=== PATIENT | male | born 1980 | race Caucasian/White ===

== ENCOUNTER 2024-10-16 11:16 | Outpatient (CLI) | payer BC, SELFPAY ==
[2024-10-16 11:51] LABS: Hematocrit 44.4 % (42.0-52.0); Hemoglobin 14.1 g/dL (14.1-18.0); Immature Granulocytes % 2.1 %; Mean Corpuscular HGB Conc 31.8 g/dL (31.8-35.4); Mean Corpuscular Hemoglobin 28.6 pg (27.0-31.2); Mean Corpuscular Volume 90.1 fl (80-94); Nucleated Red Blood Cells % 0 %; Platelet Count 393 K/mm3 (142-424); Red Blood Count 4.93 M/mm3 (4.60-6.20); Red Cell Distribution Width-SD 44.2 fL; White Blood Count 8.0 K/mm3 (4.8-10.8)
[2024-10-16 12:12] LABS: Alanine Aminotransferase 29 U/L (12-78); Albumin Level 4.4 g/dl (3.5-5.0); Alkaline Phosphatase 49 U/L (38-126); Anion Gap 10.7 mEq/L (5-15); Aspartate Amino Transferase 25 U/L (17-59); Bilirubin,Direct 0.5 mg/dl (0.0-0.4); Bilirubin,Indirect 0.2 mg/dL (0.0-0.9); Bilirubin,Total 0.7 mg/dl (0.2-1.3); Bilirubin,Unconjugated 0.3 mg/dL (0.0-1.1); Blood Urea Nitrogen 12 mg/dl (9-20); Calcium 9.9 mg/dl (8.4-10.2); Carbon Dioxide 30 mmol/L (22.0-30.0); Chloride 102 mmol/L (98-107); Cholesterol 199 mg/dl (140-200); Creatinine,Serum 0.90 mg/dl (0.66-1.25); Estimated Glomerular Filt Rate 92 ml/min (>60); GFR (African American) 111 ML/MIN (>60); Glucose 106 mg/dl (74-100); HDL Cholesterol 42 mg/dl (40-60); Magnesium 1.9 mg/dl (1.6-2.3); Potassium 4.7 mmoL/L (3.5-5.1); Sodium 138 mmol/L (136-145); Total Protein,Serum 6.8 g/dl (6.3-8.2); Triglycerides 142 mg/dl (30-150)
[2024-10-16 12:32] LABS: Free T4 (Free Thyroxine) 1.41 ng/dl (0.78-2.19)
[2024-10-16 12:40] LABS: Troponin I < 0.01 ng/ml (0.00-0.034)
[2024-10-16 12:45] LABS: Thyroid Stimulating Hormone 0.85 uIU/mL (0.465-4.68)
== END 2024-10-16 23:59 | disposition home or self-care (01) ==
LOC: LAB 11:18
PROVIDERS: Visit Provider Nurse Practitioner
DX: R61 Generalized hyperhidrosis (principal); R94.31 Abnormal electrocardiogram [ECG] [EKG]; R07.89 Other chest pain
CPT/HCPCS: 36415; 80048; 80061; 80076; 83735; 84439; 84443; 84484; 85025

== ENCOUNTER 2024-10-17 06:52 | Outpatient (CLI) | payer BC, SELFPAY ==
--- OUTSIDE RECORDS SUMMARY | 2024-08-07 04:15 | XMS_ITS ---
Author Organization [facility] [place] Address [address] [place] [address] [place] [address] Care Team Providers Care Medical Reimbursement Manager Name Role Phone MAYRA ROSENBERG Unavailable [phone] REASON FOR VISIT KIDNEY STONE ISSUES Encounters Encounter Location Date Provider Diagnosis [facility] [place] [address] [place], [place] [phone] 08/07/2024 MAYRA ROSENBERG Plan Of Treatment Next Appt Details Provider Name:MAYRA BENDER, 03/16/2025 11:00:00 AM, [address] [facility], [facility], [place], [place], [id number], Provider Name:Sanjay Brooks, 0 09/14/2025 08:45:00 AM, [address], [place], [place], [id number], Progress Notes * JAY JAY ORANTES KDOB:1980 (44 yo M)Acc No.[id number]:08/07/2024 Progress Notes Patient: Bi BEYER JAY JAY Irving Provider: Chris ROSENBERG M.D., F.A.C.P. :1980 A ge:43 Y S ex:Male Date:08/07/2024 Address:[address] , [facility] Subjective: * Chief Complaints: * 1 . KIDNEY STONE ISSUES. * Medical History: Objective: * Vitals: Assessment: Plan: * Treatment: * * Electronic signature of YUE ROSENBERG MD on 10/17/2024 at 06:56 AM EDT Sign off status: Pending * Provider: Chris ROSENBERG M.D., F.A.C.P. Date: 0 08/07/2024 Generated for Brady farooq/Alvin/Stuartitting on: 0 10/17/2024 06:56 AM EDT
--- OUTSIDE RECORDS SUMMARY | 2024-09-13 05:00 | XMS_ITS ---
Author Organization [facility] [place] Address [address] [place] [address] [place] [address] Care Team Providers Care Studio Owner Name Role Phone MAYRA ROSENBERG Unavailable [phone] MonoSanjay wayne Unavailable [phone] Allergies No Known Allergies REASON FOR VISIT annual/NEEDS A1C/DM EYE EXAM/MCUC/CMP Medications Medication SIG (Take, Route, Frequency, Duration) Notes Start Date End Date Status Pantoprazole Sodium 40 MG TAKE 1 TABLET BY MOUTH EVERY DAY for 90 days Active Testosterone UROLOGY Active Tamsulosin HCl 0.4 MG 1 capsule Orally O nce a day for 30 days 08/01/2024 Active Simvastatin 10 MG 1 tablet in the even ing for 90 days Active Fenofibrate 145 MG TAKE 1 TABLET BY SWETHA TH EVERY DAY for 90 days Active Lisinopril 20 MG TAKE 1 TABLET BY SWETHA TH DAILY for 90 days Active Social History Tobacco Use: Social History Observation Description Date Details (start date - stop date) Never Smoker NA - NA Tobacco use other than smoking: Question Answer Notes Are you an other tobacco user? No Tobacco Control (Standard) Question Answer Notes Tobacco use: Nonsmoker AUDIT-C (Standard) Question Answer Notes Did you have a drink containing alcohol in the p ast year? No Points 0 Interpretation Negative Problems Problem Type SNOMED Code ICD Code Onset Dates Problem Status W/U Status Risk Notes Problem Body mass index 30+ - obesity (770461514) Body mass index (BMI) of 31.0-31.9 in adult (Z68.31) Active confirmed Problem Body mass index 35.00 to 39.99 (8475942876840 05) Body mass index [BMI] 39.0-39.9, adult (Z68.39) Active confirmed Vital Signs Temperature 99.1 degrees Fahrenheit 09/14/19 25 Blood pressure systolic 116 mm Hg 09/14/19 25 Blood pressure diastolic 68 mm Hg 025 Heart Rate 69 /min 09/13/2024 Respiratory Rate 16 /min 09/13/2024 Height 67 in 09/13/2024 Weight 254.0 lbs 09/13/2024 BMI 39.78 kg/m2 09/13/2024 Oximetry 95 % 09/13/2024 Encounters Encounter Location Date Provider Diagnosis [facility] [place] [address] [place], [place] [id number] 09/13/2024 Sanjay Brooks Encounter for genera l adult medical examination without abnormal findings Z00.00 and Body mass index [BMI] 39.0-39.9, adult Z68.39 Assessments Encounter Date Diagnosis (ICD Code) Assessment Notes Treatment Notes Treatment Clinical Notes Section Notes 09/13/2024 Encounter for general adult medical examination without abnormal findings (ICD-10 - Z00.00) BP good. BMI 39, discussed weight loss and lifestyle modifications. PHQ-9 negative. Colonoscopy UTD. Bloodwork UTD, 06/2024. Medication reviewed. 1 ER visit for kidney stones, follows with Urology. Vaccinations UTD. 09/13/2024 Body mass index [BMI] 39.0-39.9, adult (ICD-10 - Z68.39) Plan Of Treatment Treatment Notes Assessment Notes Encounter for general adult medical examination without abnormal findings BP good. BMI 39, discussed weight loss a nd lifestyle modifications. PHQ-9 negative. Colonoscopy UTD. Bloodwork UTD, 06/2024. Medication reviewed. 1 ER visit for kidney stones, follows with Urology. Vaccinations UTD. Next Appt Details Provider Name:MAYRA BENDER, 03/16/2025 11:00:00 AM, [address], [address], [place], [place], [id number], Provider Name:Sanjay Brooks, 0 09/14/2025 08:45:00 AM, [address], [address], [place], [place], [id number], Progress Notes * JAY JAY ORANTES KDOB:1980 (44 yo M)Acc No.[id number]:09/13/2024 Progress Notes Patient: JAY JAY CLAY Provider: Eddy Brooks :1980 A ge:44 Y S ex:Male Date:09/13/2024 Address:[address] [place], [place] [address] [address] Subjective: * Chief Complaints: * a nnual/NEEDS A1C/DM EYE EXAM/MCUC/CMP * HPI: D epression Screening: PHQ-9 L ittle interest or pleasure in doing things?Not at all F eeling down, depressed, or hopeless N ot at all T rouble falling or staying asleep, or sleeping too much N ot at all F eeling tired or having little energy N ot at all P oor appetite or overeating N ot at all F eeling bad about yourself or that you are a failure, or have let yourself or your family down N ot at all T rouble concentrating on things, such as reading the newspaper or watching television N ot at all M oving or speaking so slowly that other people could have noticed; or the opposite, being so fidgety or restless that you have been moving around a lot more than usual N ot at all T houghts that you would be better off or of hurting yourself in some way N ot at all T otal Score 0 C onstitutional: 44 y/o M with PMH HTN, HLD presents to the office to the annual wellness. Follows with Urology quarterly for testosterone. Pt is denying any acute complaints, doing well overall. Denies fever, chills, CP, SOA, n/v/d. PHQ-9 scored 2, negative. Denies smoking, illicit drugs. Seldom ETOH use. , 2 children. Works in electrical sales. UTD on colonoscopy this year, 10 year return. No family hx of prostate cancer. Eye exam UTD. R eviewed medication list. Tdap UTD this year. * ROS: G eneral/Constitutional: Change in appetite d enies. C hills d enies. F ever d enies. O phthalmologic: Blurred vision d enies. D ischarge d enies. E ye Pain d enies. E NT: Decreased hearing d enies. S ore throat d enies.?Swollen glands d enies. E ndocrine: Cold intolerance d enies. E xcessive thirst d enies. H eat intolerance d enies. W eight loss d enies. R espiratory: Cough d enies. S hortness of breath at rest d enies. S hortness of breath with exertion d enies. W heezing d enies. C ardiovascular: Chest pain at rest d enies. C hest pain with exertion?denies. I rregular heartbeat d enies. S hortness of breath d enies. ? G astrointestinal: Abdominal pain d enies. D iarrhea d enies. N ausea d enies. V omiting d enies . G enitourinary: Blood in urine d enies. D ifficulty urinating d enies. F requent urination d enies. M usculoskeletal: Painful joints d enies. W eakness d enies. ? S kin: Dry skin d enies. I tching d enies. R kaila d enies. N eurologic: Dizziness d enies. F ainting d enies. H eadache?denies. * Medical History: * Surgical History: N o Surgical History documented. * Hospitalization/Major Diagno stic Procedure: N o Hospitalization History. * Family History: M other: diagnosed with Essential (primary) hypertension, Heart disease, unspecified. GRANDMOTHER-DIABETES. * Social History: T obacco Use: T obacco use other than smoking A re you an other tobacco user? N o Tobacco Control (Standard) T obacco use: N onsmoker F ALL ASSESSMENT: H PT HAD A FALL WITHIN LAST 3 MONTHS?: NO . COLON CAN[facility]ER SCREENIN [facility] (return in 10 years). DIABETIC EYE EXAM: not a diabetic. ARE WE PCP OR NEPH: PCP. Hospital visit since last office visit?: yes, where: [facility] 07/2024. I MMUNIZATION HISTORY: T ETANUS/TDAB Y ES 2 025 . : A DIPIKA-C (Standard) D id you have a drink containing alcohol in the past year? N o P oints 0 I nterpretation N egative D rugs/Alcohol: D rugs H ave you used drugs other than those for medical reasons in the past 12 months? N o Do you drink alcohol?: NO. * Medications: T akingTestosterone , Notes to Pharmacist: UROLOGYPantoprazole Sodium 40 MG Tablet Delayed Release TAKE 1 TABLET BY MOUTH EVERY DAY Lisinopril 20 MG Tablet TAKE 1 TABLET BY MOUTH DAILY Fenofibrate 145 MG Tablet TAKE 1 TABLET BY MOUTH EVERY DAY Simvastatin 10 MG Tablet 1 tablet in the evening Tamsulosin HCl 0.4 MG Capsule 1 capsule Orally Once a day Medication List reviewed and reconciled with the patientTaking Testosterone , Notes to Pharmacist: UROLOGYTaking Pantoprazole Sodium 40 MG Tablet Delayed Release TAKE 1 TABLET BY MOUTH EVERY DAY Taking Lisinopril 20 MG Tablet TAKE 1 TABLET BY MOUTH DAILY Taking Fenofibrate 145 MG Tablet TAKE 1 TABLET BY MOUTH EVERY DAY Taking Simvastatin 10 MG Tablet 1 tablet in the evening Taking Tamsulosin HCl 0.4 MG Capsule 1 capsule Orally Once a day Medication List reviewed and reconciled with the patient * Allergies: N .K.D.A.no[Allergies Verified] Objective: * Vitals: T emp:99.1F, HR:69/min, BP:116/68mm Hg, Wt:254.0, BMI:39.78Index, Ht: 67 in, RR:16/min, Oxygen sat %:95%, Peak Flow: RA. * Examination: G eneral Examination: GENERAL APPEARANCE: w ell developed, well nourished, in no acute distress. HEAD: n ormocephalic, atraumatic. EYES: p upils equal, round, reactive to light and accommodation, sclera non-icteric. EARS: n ormal. ORAL CAVITY: m ucosa moist. THROAT: c lear. NECK/THYROID: n philip supple, full range of motion, no cervical lymphadenopathy. SKIN: w arm and dry, no suspicious lesions. HEART: r egular rate and rhythm, S1, S2 normal, no murmurs.? LUNGS: c lear to auscultation bilaterally. ABDOMEN: s oft, nontender, nondistended, bowel sounds present, normal. EXTREMITIES: n o clubbing, cyanosis, or edema. NEUROLOGIC: n onfocal, motor strength normal upper and lower extremities, sensory exam intact. Assessment: * Assessment: 1. E ncounter for general adult medical examination without abnormal findings - Z00.00 (Primary) 2 . B hardik mass index [BMI] 39.0-39.9, adult - Z68.39 Plan: * Treatment: * Procedure Codes: 1 101F PT FALLS ASSESS-DOC'D LE1/WP0567R MED LIST DOCD IN [id number] TOBACCO NON-SBTB8691L SYST BP LT 130 MM [id number] DIAST BP < 80 MM ZV0420U BODY MASS INDEX [id number] STATIN THERAPY/CURRENTLY [id number] COLORECTAL CA SCREEN DOC GWY4000Y LOW RISK FOR RETINOPATHY * * Sign off status: Completed true * Provider: Eddy Brooks Date: 0 09/13/2024 Generated for Brady farooq/Alvin/eTransmitting on: 0 10/17/2024 06:56 AM EDT History and Physical Notes * HPI (History of Present Illness) Category Sub-Category Detail Notes Category Not es Depression Screening PHQ-9 Little inte rest or pleasure in doing things: Not at all Feeling down, depressed, or hopeless: No t at all Trouble falling or staying asleep, or sl eeping too much: Not at all Feeling tired or having little energy: N ot at all Poor appetite or overeating: Not at all Feeling bad about yourself o r that you are a failure, or have let yourself or your family down: Not at all Trouble concentrating on thi ngs, such as reading the newspaper or watching television: Not at all Moving or speaking so slowly that other people could have noticed; or the opposite, being so fidgety or restless that you have been moving around a lot more than usual: Not at all Thoughts that you would be b becky off or of hurting yourself in some way: Not at all Total Score: 0 Examination Category Sub-Category Detail Notes Category Not es General Examination GENERAL APPEARANCE: well dev eloped, well nourished, in no acute distress HEAD: normocephalic, atrau matic EYES: pupils equal, round, reactive to light and accommodation, sclera non-icteric EARS: normal THROAT: clear NECK/THYROID: neck supple, full ra nge of motion, no cervical lymphadenopathy HEART: regular rate and rhy thm, S1, S2 normal, no murmurs LUNGS: clear to auscultatio n bilaterally ABDOMEN: soft, nontender, non distended, bowel sounds present, normal NEUROLOGIC: nonfocal, motor stre ngth normal upper and lower extremities, sensory exam intact SKIN: warm and dry, no vadim picious lesions EXTREMITIES: no clubbing, cyanosi s, or edema ORAL CAVITY: mucosa moist
--- NOTE | 2024-10-17 | CA_ITS ---
APPROVED REPORT Exam: Exercise Treadmill Technologist: Marylou Root Ht: 5 ft 7 in Wt: 250 lbs BSA: 2.22 m2 HR: 56 bpm BP: 139/82 mmHg Stress Test Details Test: Exercise stress testing was performed using a Damon protocol. HR Resting HR: 56 bpm Max Heart Rate (APMHR): 176.585846 bpm Max HR Achieved: 154 bpm Target HR (85% APMHR): 149.273506 bpm % of APMHR: 87.50 Recovery HR: 90 bpm BP Resting BP: 139.0/82.0 mmHg Max BP: 198.0/90.0 mmHg Recovery BP: 134.0/80.0 mmHg ECG Resting ECG: Sinus bradycardia Stress ECG Conclusion Symptoms: Chest tightness, dyspnea, fatigue Arrhythmias/Ectopy: PVCs ST-T Changes: Less than [address] depression Conclusion: Normal EKG response to exercise. Electronically signed by : Shahida Polanco MD 10/17/2024 14:54:06
--- OUTSIDE RECORDS SUMMARY | 2024-10-17 06:56 | XMS_ITS | Patient Health Record ---
Author Organization [facility] [place] Address [address] [place] [address] [place] [address] Care Team Providers Care Relief Cook Name Role Phone MAYRA RSOENBERG Unavailable [phone] Monobe Lica Unavailable [phone] Allergies No Known Allergies Reason For Referral No Information Medications Medication SIG (Take, Route, Frequency, Duration) Notes Start Date End Date Status Simvastatin 10 MG 1 tablet in the even ing for 90 days Active Fenofibrate 145 MG TAKE 1 TABLET BY SWETHA TH EVERY DAY for 90 days Active Testosterone UROLOGY Active Lisinopril 20 MG TAKE 1 TABLET BY SWETHA TH DAILY for 90 days Active Tamsulosin HCl 0.4 MG 1 capsule Orally O nce a day for 30 days 08/01/2024 Active Pantoprazole Sodium 40 MG TAKE 1 TABLET BY MOUTH EVERY DAY for 90 days Active Social History Tobacco [...] ast year? No Points 0 Interpretation Negative Section Notes: SLIPPED ON ICE Problems Problem Type SNOMED Code ICD Code Onset Dates Problem Status W/U Status Risk Notes Problem Essential hypertension (37272634) Essential (primary) hypertension (I10) Active confirmed Problem Gastro-esophageal reflux disease without esophagitis (466488849) Gastro-esophageal reflux disease without esophagitis (K21.9) Active confirmed Problem Mixed hyperlipidemia (211735737) Mixed hyperlipidemia (E78.2) Active confirmed Problem Allergic rhinitis (31707940) Allergic rhinitis (J30.9) Active confirmed Problem Body mass index 30+ - obesity (996927173) Body mass index (BMI) of 31.0-31.9 in adult (Z68.31) Active confirmed Problem Nephrolithiasis (43253828) Nephrolithiasis (N20.0) Active confirmed Problem Body mass index 35.00 to 39.99 (597166468211104) Body mass index [BMI] 39.0-39.9, adult (Z68.39) Active confirmed Problem Body mass index 40+ - severely obese (283181168) Body mass index [BMI] 40.0-44.9, adult (Z68.41) Active confirmed Vital Signs Heart Rate 69 /min 09/13/2024 Temperature 99.1 degrees Fahrenheit 09/13/2024 Respiratory Rate 16 /min 09/13/2024 Oximetry 95 % 09/13/2024 Blood pressure diastolic 68 mm Hg 09/13/2024 Height 67 in 09/13/2024 Blood pressure systolic 116 mm Hg 09/13/2024 Weight 254.0 lbs 09/13/2024 BMI 39.78 kg/m2 09/13/2024 Encounters Encounter Location Date Provider Diagnosis [facility] [place] [address] [place], [place] [id number] 04/20/2024 Lica Monobe Essential (primary) hypertension I10 ; Mixed hyperlipidemia E78.2 ; Gastro-esophageal reflux disease without esophagitis K21.9 ; Prediabetes R73.03 and Body mass index [BMI] 40.0-44.9, adult Z68.41 [facility] [place] [address] [place], [place] [id number] 09/13/2024 Lica Monobe Encounter for genera l adult medical examination without abnormal findings Z00.00 and Body mass index [BMI] 39.0-39.9, adult Z68.39 [facility] [place] [address] [place], [place] [id number] 07/20/2024 Lica Monobe Nephrolithiasis N20. 0 [facility] [place] [address] [place], [place] [id number] 08/01/2024 Lica Monobe [facility] [place] [address] [place], [place] [id number] 09/13/2024 Lica Monobe Gastro-esophageal re flux disease without esophagitis K21.9 ; Essential (primary) hypertension I10 and Mixed hyperlipidemia E78.2 Assessments Encounter Date Diagnosis (ICD Code) Assessment Notes Treatment Notes Treatment Clinical Notes Section Notes 04/20/2024 Essential (primary) hypertension (ICD-10 - I10) Bp good, monitors as needed. Cont Lisinopril. 07/20/2024 Nephrolithiasis (ICD-10 - N20.0) 09/13/2024 Encounter for general adult medical examination without abnormal findings (ICD-10 - Z00.00) BP good. BMI 39, discussed weight loss and lifestyle modifications. PHQ-9 negative. Colonoscopy UTD. Bloodwork UTD, 06/2024. Medication reviewed. 1 ER visit for kidney stones, follows with Urology. Vaccinations UTD. 09/13/2024 Body mass index [BMI] 39.0-39.9, adult (ICD-10 - Z68.39) 04/20/2024 Mixed hyperlipidemia (ICD-10 - E78.2) LDL under good ontrol with Fenofibrate and statin. Sending refills. 09/13/2024 Gastro-esophageal reflux disease without esophagitis (ICD-10 - K21.9) 09/13/2024 Essential (primary) hypertension (ICD-10 - I10) 04/20/2024 Gastro-esophageal reflux disease without esophagitis (ICD-10 - K21.9) Using as needed, diet consists of high acid. 09/13/2024 Mixed hyperlipidemia (ICD-10 - E78.2) 04/20/2024 Prediabetes (ICD-10 - R73.03) Discussed elevated A1C, continue low carb/low sugar diet. 04/20/2024 Body mass index [BMI] 40.0-44.9, adult (ICD-10 - Z68.41) Plan Of Treatment Pending Test Test Name Order Date Urinalysis, Complete 07/20/2024 Urine Culture, Routine 07/20/2024 Next Appt Details Provider Name:MAYRA BENDER, 03/16/2025 11:00:00 AM, [address], [address], [place], [place], [id number], Provider Name:Sanjay Brooks, 0 09/14/2025 08:45:00 AM, [address], [address], [place], [place], [id number], Insurance Providers Payer Name Payer Address Payer Phone Subscriber Number Group Number Insured Name Patient Relationship to Insured Coverage Start Date Coverage End Date [facility] [address] [place] [address] [phone] [id number] JAY JAY ORANTES Self - patient is the insured Medical (General) History Medical History History ICD Code BLOOD PRESSURE, CHOLESTEROL kidney stones
--- NOTE | 2024-10-17 07:00 | NM_ITS ---
APPROVED REPORT Exam: Nuclear Stress Test Indication: Chest pain, HTN, High cholesterol, Family history Patient Location: Outpatient Stress Tech: Marylou Root IN Tech:Venus Espinosa, ARRT, RT (R)(N) Ht: 5 ft 7 in Wt: 250 lbs HR: 58 bpm BP: 139/82 mmHg BSA: 2.22 m2 TID: 0.99 BMI: 39.1 History: Chest pain, HTN, High cholesterol, Family history Procedure: Patient exercised on Damon protocol 8:03 minutes and sec, resting heart rate 58 bpm, resting blood pressure 139/82 mmHg, with exercise maximum heart rate achived was 154 bpm which is 87 % of the maximum predicted heart rate and blood pressure was 198/90 mmHg. Test was stopped due to SOB. Patient denied any complaint of chest pain. Patient has average exercise capacity, achieved 10.3 METs of workload on treadmill, the blood pressure response to exercise was normal. Cardiac Stress and Resting SPECT Images: Cardiac Stress and Resting SPECT images were obtained using technetium 99m Myoview 32.9 mCi stress and 10.32 mCi at rest. Resting and stress imaging in supine and prone position demonstrate a small sized, moderate, reversible perfusion defect in the LV apical wall. Gated imaging demonstrates normal global LV systolic function. LVEF is calculated at 57%. Conclusion: Small sized, moderate, reversible perfusion defect in the LV apical wall. Findings are suggestive of reversible ischemia. Gated imaging demonstrates normal global LV systolic function. LVEF is calculated at 57%. Electronically signed by : Shahida Polanco MD 10/17/2024 14:46:04
[2024-10-17] MEDS: SODIUM CHLORIDE 0.9% 10ML SYR (RAD ONLY) 10 ML IV ×2 (08:48)
[2024-10-17] MEDS: ISOTOPE MYOVIEW (PER STUDY) 1 DOSE IV (08:48)
--- NOTE | 2024-10-17 09:45 | CA_ITS ---
APPROVED REPORT EXAM: Comprehensive 2D, Doppler, and color-flow Echocardiogram [facility] Therapist: Roya Riley CRT Ht: 5 ft 7 in Wt: 153lbs BSA: 1.80 BP: 143/82 mmHg Indications: Chest Pain 2D Dimensions LA Volume 20.70 mL LA Volume Index 11.44 mL/m2 (M/F) 16-34 M-Mode Dimensions RVDd 2.92 cm (0.9-2.6) LA Diam 3.60 cm (1.9-4.0) LVDd 4.20 cm (3.5-5.7) LVDs 2.85 cm (3.5-5.7) IVSd 1.53 cm (0.6-1.1) PWd 1.17 cm (0.6-1.1) EF (Teich) 60.70% FS 32.10% EDV (Teich) 78.60 mL ESV (Teich) 30.90 mL LV Diastology E Decel Time 173 (160-240 msec) E/A Ratio 0.9 MED A' 7.00 cm/s LAT A' 8.90 cm/s Aortic Valve AO Peak GR. 8.60 mmHg Mitral Valve MV E Max Gumaro. 67.0 (40-130 cm/s) MV A Velocity 77.0 (40-130 cm/s) E/A Ratio 0.88 MV PHT 51.0 ms Pulmonary Valve PV Peak Velocity 86.0 (50-150 cm/s) Tricuspid Valve TR P. Velocity 196.00 cm/s RAP Estimate 10.00 mmHg RVSP 25.40 mmHg Left Ventricle The left ventricle is normal size. The left ventricular systolic function is normal. The left ventricular ejection fraction is within the normal range. Proximal septal thickening is present. There is normal LV segmental wall motion. The left ventricular diastolic function is normal. LVEF is 55%. Right Ventricle The right ventricle is normal size. The right ventricular systolic function is normal. Atria The left atrium size is normal. The right atrium size is normal. There is no Doppler evidence of interatrial shunt. Aortic Valve The aortic valve opens well. There is no aortic valvular stenosis. No aortic regurgitation is present. Mitral Valve The mitral valve is normal in structure. No evidence of mitral valve stenosis. There is no mitral valve regurgitation noted. Tricuspid Valve Tricuspid valve is grossly normal in structure and function. Trace tricuspid regurgitation. There is insufficient TR jet to estimate RVSP. Pulmonic Valve The pulmonary valve is normal in structure. Trace pulmonic regurgitation. Great Vessels The aortic root is normal in size. IVC is normal in size and collapses >50% with inspiration. Pericardium There is no pericardial effusion. Other Information Study Quality: Fair Conclusion Normal biventricular systolic function. No significant valvular stenosis or regurgitation. Electronically signed by : Shahida Polanco MD 10/19/2024 14:29:57
== END 2024-10-17 23:59 | disposition home or self-care (01) ==
PROVIDERS: Visit Provider Nurse Practitioner
DX: I49.3 Ventricular premature depolarization (principal); R94.39 Abnormal result of other cardiovascular function study; I10 Essential (primary) hypertension; E78.00 Pure hypercholesterolemia, unspecified; R61 Generalized hyperhidrosis; R94.31 Abnormal electrocardiogram [ECG] [EKG]
CPT/HCPCS: 78452; 93016; 93017; 93018; 93306; A9502

== ENCOUNTER 2024-10-20 11:13 | Day surgery (SDC) | payer BC, SELFPAY ==
[2024-10-20] VITALS (11 sets, daily range): BP systolic 93–132; BP diastolic 40–78; PULSE 54–68; RESP 18; TEMP 36.9; O2SAT 91–97; BMI 39.7
--- NOTE | 2024-10-20 07:32 | IR_ITS ---
APPROVED REPORT Patient Location: Outpatient PROCEDURES Left heart catheterization Left ventriculogram Selective coronary angiogram INDICATION Abnormal Myoview, Angina pectoris Informed consent was obtained prior to the procedure. COMPLICATIONS None Estimated Blood Loss: Less than 10 mls TECHNIQUE One percent lidocaine used to anesthetize the right anterior aspect of the wrist. The right radial artery was accessed via the Seldinger technique. A 6 Tu[place] sheath was placed in the right radial artery. 2.5 mg of Verapamil, 800 mcg of nitroglycerin, 1mg Lidocaine and 5000 U Heparin were given through the arterial sheath. The JL3 catheter was also used to perform left heart catheterization, left ventriculogram and selective coronary angiogram. At the end of the procedure the sheath was removed good hemostasis was achieved using Traclet band, patient was transferred to the postop holding area in stable condition. ANGIOGRAPHIC RESULTS The left main artery Normal The left anterior descending artery Proximally normal with mid vessel 20 to 30% stenosis The circumflex artery Vestigial and normal The right coronary artery Dominant proximal 10% stenosis mid vessel the distal 30% stenosis with a 50 to 60% stenosis in the distal right coronary artery extending into the proximal ostial portion of the large posterior descending artery. 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 Patient is on no antianginal medications therefore recommend maximizing antianginals 2. Also recommend switching to high intensity statin with a goal LDL less than 55 3. If patient continues to experience angina pectoris after being on maximum antianginal medications and experiencing low LDL consideration can be given to stent the distal dominant right coronary. At this point I am largely in favor of medical management Electronically signed by : Damian Alexander MD 10/20/2024 12:59:18
[2024-10-20] MEDS: 0.9 % SODIUM CHLORIDE 500 ML 25 ML IV (12:22)
[2024-10-20] MEDS: LIDOCAINE 1% 10ML MDV 10 ML IJ (12:22)
[2024-10-20] MEDS: HEPARIN 1,000 UNITS/ML 10ML VIAL (CATH LAB) 5000 UNIT IV (12:23)
[2024-10-20] MEDS: VERAPAMIL 2.5MG/ML 2ML VIAL 2.5 MG IV (12:23)
[2024-10-20] MEDS: HEPARIN 1,000 UNITS/500ML NS (CATH LAB) 3000 UNIT IV (12:23)
[2024-10-20] MEDS: NITROGLYCERIN 800MCG/8ML SYR (CATH LAB) 800 MCG IA (12:24)
[2024-10-20] MEDS: FENTANYL 100MCG/2ML VIAL 50 MCG IV (12:51)
[2024-10-20] MEDS: MIDAZOLAM HCL 1MG/ML 5ML VIAL 1 MG IV (12:51)
[2024-10-20] MEDS: IOPAMIDOL-370 (76%);100ML BOTTLE 50 ML IV (14:22)
== END 2024-10-20 14:51 | disposition home or self-care (01) ==
PROVIDERS: Visit Provider Internal Medicine
PROC: 4A023N7 Measurement of Cardiac Sampling and Pressure, Left Heart, Percutaneous Approach (ICD-10-PCS; CPT 93452; principal; 2024-10-20 15:00)
DX: I25.119 Atherosclerotic heart disease of native coronary artery with unspecified angina pectoris (principal); R94.39 Abnormal result of other cardiovascular function study; R94.31 Abnormal electrocardiogram [ECG] [EKG]; I10 Essential (primary) hypertension; E78.5 Hyperlipidemia, unspecified; E66.9 Obesity, unspecified; Z68.39 Body mass index [BMI] 39.0-39.9, adult; R61 Generalized hyperhidrosis; Z79.899 Other long term (current) drug therapy
CPT/HCPCS: 93458; 99152; C1725; C1769; J1200; J1644; J3010; J7040; Q9967

== ENCOUNTER 2025-03-20 08:15 | Outpatient (CLI) | payer BC, SELFPAY ==
--- OUTSIDE RECORDS SUMMARY | 2024-03-14 02:45 | XMS_ITS ---
Author Organization [facility] [place] Address [address] [place] [address] [place] [address] Care Team Providers Care Ice Seller Name Role Phone MAYRA ROSENBERG Unavailable [phone] Monobe, Lica Unavailable [phone] REASON FOR VISIT 6 MO FU Encounters Encounter Location Date Provider Diagnosis [facility] [place] [address] [facility] [address] [place], [place] [id number] 03/14/2024 Lica Monobe Plan Of Treatment Next Appt Details Provider Name:Sanjay Thurstonbe, 0 09/14/2025 08:45:00 AM, [address] [facility], [place], [place], [id number], Progress Notes * JAY JAY ORANTES KDOB:1980 (44 yo M)Acc No.[id number]:03/14/2024 Progress Notes Patient: Bi BEYER JAY JAY Irving Provider: Eddy Brooks :1980 A ge:43 Y S ex:Male Date:03/14/2024 Address:[address] , [id number] Subjective: * Chief Complaints: * 1 . 6 MO FU. * Medical History: Objective: * Vitals: Assessment: Plan: * Treatment: * * Electronic signature of Sanjay Thurstonbe , PAC on 03/20/2025 at 08:18 AM EST Sign off status: Pending * Provider: Eddy Brooks Date: 05/15/2023 Generated for Printi ng/Faxing/Neva on: 1 05/21/2024 08:18 AM EST
--- OUTSIDE RECORDS SUMMARY | 2024-08-07 03:15 | XMS_ITS ---
Author Organization [facility] [place] Address [address] [place] [address] [place] [address] Care Team Providers Care Research Greenhouse Supervisor Name Role Phone MAYRA ROSENBERG Unavailable [phone] REASON FOR VISIT KIDNEY STONE ISSUES Encounters Encounter Location Date Provider Diagnosis [facility] [place] [address] [place], [place] [phone] 08/07/2024 MAYRA ROSENBERG Plan Of Treatment Next Appt Details Provider Name:Sanjay Brooks, 0 09/14/2025 08:45:00 AM, [address], [address], [place], [place], [id number], Progress Notes * JAY JAY ORANTES KDOB:1980 (44 yo M)Acc No.[id number]:08/07/2024 Progress Notes Patient: JAY JAY CLAY Provider: Chris ROSENBERG M.D., F.A.C.P. :1980 A ge:43 Y S ex:Male Date:08/07/2024 Address:[address] [facility] Subjective: * Chief Complaints: * 1 . KIDNEY STONE ISSUES. * Medical History: Objective: * Vitals: Assessment: Plan: * Treatment: * * Electronic signature of YUE ROSENBERG MD on 03/20/2025 at 08:18 AM EST Sign off status: Pending * Provider: Carline RHODESD., F.A.C.P. Date: 0 08/07/2024 Generated for Brady farooq/Alvin/Neva on: 1 05/21/2024 08:18 AM EST
--- OUTSIDE RECORDS SUMMARY | 2025-03-16 03:00 | XMS_ITS ---
Author Organization [facility] [place] Address [address] [place] [address] [place] [address] Care Team Providers Care Zinc Plate Grainer Name Role Phone MAYRA ROSENBERG Unavailable [phone] REASON FOR VISIT 6 month f/u Encounters Encounter Location Date Provider Diagnosis [facility] [place] [address] [place], [place] [id number] 03/16/2025 MAYRA ROSENBERG Plan Of Treatment Next Appt Details Provider Name:Sanjay Brooks, 0 09/14/2025 08:45:00 AM, [address], [address], [place], [place], [id number], Progress Notes * JAY JAY ORANTES KDOB:1980 (44 yo M)Acc No.[id number]:03/16/2025 Progress Notes Patient: JAY JAY CLAY Provider: Chris ROSENBERG M.D., F.A.C.P. :1980 A ge:44 Y S ex:Male Date:03/16/2025 Address:[address] [id number] Subjective: * Chief Complaints: * 1 . 6 month f/u. * Medical History: Objective: * Vitals: Assessment: Plan: * Treatment: * * Electronic signature of YUE ROSENBERG MD on 03/20/2025 at 08:18 AM EST Sign off status: Pending * Provider: Chris ROSENBERG M.D., F.A.C.P. Date: 1 05/17/2024 Generated for Brady farooq/Alvin/Neva on: 05/21/2024 08:18 AM EST
--- OUTSIDE RECORDS SUMMARY | 2025-03-20 08:19 | XMS_ITS | Patient Health Record ---
Author Organization [facility] [place] Address [address] [place] [address] [place] [address] Care Team Providers Care Product Support Engineer Name Role Phone MAYRA ROSENBERG Unavailable [phone] MonoSanjay wayne Unavailable [phone] Allergies No Known Allergies Reason For Referral No Information Medications Medication SIG (Take, Route, Frequency, Duration) Notes Start Date End Date Status Simvastatin 10 MG 1 tablet in the even ing; Duration: 90 days Active Fenofibrate 145 MG TAKE 1 TABLET BY SWETHA TH EVERY DAY; Duration: 90 days Active Testosterone UROLOGY Active Lisinopril 20 MG TAKE 1 TABLET BY SWETHA TH DAILY; Duration: 90 days Active Tamsulosin HCl 0.4 MG 1 capsule Orally O nce a day; Duration: 30 days 08/01/2024 Active Pantoprazole Sodium 40 MG TAKE 1 TABLET BY MOUTH EVERY DAY; Duration: 90 days Active Social History Tobacco Use: [...] W/U Status Risk Notes Problem Essential hypertension (64795661) Essential (primary) hypertension (I10) Active confirmed Problem Gastro-esophageal reflux disease without esophagitis (623092432) Gastro-esophageal reflux disease without esophagitis (K21.9) Active confirmed Problem Mixed hyperlipidemia (165370088) Mixed hyperlipidemia (E78.2) Active confirmed Problem Allergic rhinitis (43960785) Allergic rhinitis (J30.9) Active confirmed Problem Body mass index 30+ - obesity (297055575) Body mass index (BMI) of 31.0-31.9 in adult (Z68.31) Active confirmed Problem Nephrolithiasis (50427242) Nephrolithiasis (N20.0) Active confirmed Problem Body mass index 35.00 to 39.99 (564644197666182) Body mass index [BMI] 39.0-39.9, adult (Z68.39) Active confirmed Problem Body mass index 40+ - severely obese (505115927) Body mass index [BMI] 40.0-44.9, adult (Z68.41) [...] Provider Diagnosis [facility] [place] [address] [place], [place] [id number] 04/20/2024 Lica Monobe Essential (primary) hypertension I10 ; Mixed hyperlipidemia E78.2 ; Gastro-esophageal reflux disease without esophagitis K21.9 ; Prediabetes R73.03 and Body mass index [BMI] 40.0-44.9, adult Z68.41 [facility] [place] [address] [place] [place], [place] [id number] 09/13/2024 Lica Monobe Encounter for genera l adult medical examination without abnormal findings Z00.00 and Body mass index [BMI] 39.0-39.9, adult Z68.39 [facility] [place] [address] [place] [place], [place] [id number] 07/20/2024 Lica Monobe Nephrolithiasis N20. 0 [facility] [place] [address] [place], [place] [id number] 08/01/2024 Sajnay Brooks [facility] [place] [address] [facility] [address] [place], [place] [id number] 09/13/2024 Licmaykel Thurstonbe Gastro-esophageal re flux disease without esophagitis K21.9 [...] Culture, Routine 07/20/2024 Next Appt Details Provider Name:Sanjay Brooks, 0 09/14/2025 08:45:00 AM, [address], [place], [place], [id number], Insurance Providers Payer Name Payer Address Payer Phone Subscriber Number Group Number Insured Name Patient Relationship to Insured Coverage Start Date Coverage End Date [facility] [address] [place] [address] [id number] JAY JAY ORANTES Self - patient is the insured Medical (General) History Medical History History ICD Code BLOOD PRESSURE, CHOLESTEROL kidney stones
[2025-03-20 09:10] LABS: Chloride 103 mmol/L (98-107)
[2025-03-20 09:11] LABS: Potassium 4.5 mmoL/L (3.5-5.1); Sodium 138 mmol/L (136-145)
[2025-03-20 09:14] LABS: Anion Gap 9.5 mEq/L (5-15); Blood Urea Nitrogen 18 mg/dl (9-20); Calcium 10.1 mg/dl (8.4-10.2); Carbon Dioxide 30 mmol/L (22.0-30.0); Creatinine,Serum 1.20 mg/dl (0.66-1.25); Estimated Glomerular Filt Rate 66 ml/min (>60); GFR (African American) 80 ML/MIN (>60); Glucose 142 mg/dl (74-100)
== END 2025-03-20 23:59 | disposition home or self-care (01) ==
LOC: LAB 08:16
PROVIDERS: Visit Provider Nurse Practitioner Family
DX: I25.10 Atherosclerotic heart disease of native coronary artery without angina pectoris (principal)
CPT/HCPCS: 36415; 80048